=== PATIENT | female | born 1985 ===

== ENCOUNTER 2025-02-13 13:45 | Inpatient (IN) | payer OTHER ==
[~2025-02-13] VITALS: Ht 160 cm; Wt 77.1 kg
[2025-02-19 10:13] VITALS: BP 111/74
[2025-02-19] MEDS ORDERED: OXYTOCIN 20 UNITS/500ML RL PIGGYBAG IV ONE (10:18)
[2025-02-19] MEDS ORDERED: OXYTOCIN 500 ML IV ONE (11:15)
[2025-02-19] MEDS ORDERED: RINGERS SOLUTION,LACTATED 1,000 ML IV SCH (11:15)
[2025-02-19 11:46] LABS: BASO % 0.2 % (0.1-1.2); EOS # 0.05 (0.04-0.54); EOS % 0.8 % (0.7-7.0); LYMPH # 1.25 (1.18-3.74); LYMPH % 19.0 % (19.3-53.1); MEAN PLATELET VOLUME 12.00 fl (9.4-12.4); MONO # 0.44 (0.24-0.82); MONO % 6.7 % (4.7-12.5); NEUT # 4.78 (1.56-6.13); NEUT % 72.5 % (34.0-71.1); RED CELL DISTRIBUTION WIDTH 13.0 % (11.6-14.4)
[2025-02-19 12:13] LABS: INR < 0.93
[2025-02-19 12:42] LABS: ALT/SGPT 15.0 U/L (12-78); AST/SGOT 14.0 U/L (15-37); BILIRUBIN TOTAL 0.46 mg/dL (0.3-1.2); BUN CREA RATIO 20.0 (7.0-25.0); CREATININE SERUM 0.49 mg/dL (0.55-1.02); GFR 141.34; GLOBULINA 4.0 G/DL (2.4-3.5); GLUCOSE FASTING 79.0 mg/dL (65-100); OSMOLALITY SERUM 277.0 MOSM/KG (275-295)
[2025-02-19] MEDS ORDERED: ERYTHROMYCIN BASE OPHT 1GM EACH TUBE OP ONE ×2 (14:42→17:00)
[2025-02-19] MEDS ORDERED: OXYTOCIN 20 UNITS/1000ML RL PIGGYBAG IV ONE (14:42)
[2025-02-19] MEDS ORDERED: CHLORHEXIDINE GLUCONATE 120 ML BOTTLE TOP ONE (14:42)
[2025-02-19] MEDS ORDERED: LIDOCAINE HCL 1% 10ML VIAL ONE (14:43)
[2025-02-19 15:39] VITALS: BP 116/63
[2025-02-19 15:48] VITALS: BP 96/46
[2025-02-19 16:03] VITALS: BP 102/56
[2025-02-19] MEDS ORDERED: ACETAMINOPHEN WITH CODEINE 1 UDTAB TABLET PO PRN (17:00)
[2025-02-19] MEDS ORDERED: CHLORHEXIDINE GLUCONATE 120 ML BOTTLE TP SCH (17:00)
[2025-02-19] MEDS ORDERED: OXYTOCIN 1,000 ML IV SCH (17:00)
[2025-02-19 18:12] VITALS: BP 120/73
[2025-02-20 01:23] VITALS: BP 111/68
[2025-02-20 08:00] VITALS: BP 108/70
[2025-02-20 16:00] VITALS: BP 108/70
[2025-02-21] VITALS: BP 106/69
[2025-02-21 09:32] VITALS: BP 122/78
== END 2025-02-21 14:31 | disposition home or self-care (01) | DRG 807 ==
LOC: LDR 02-19 09:23 → OB/GYN 02-19 16:07
PROVIDERS: ADMIT Obstetrics & Gynecology; ATTEND Obstetrics & Gynecology
PROC: 10E0XZZ Delivery of Products of Conception, External Approach (ICD-10-PCS; principal; 2025-02-19)
PROC: 0HQ9XZZ Repair Perineum Skin, External Approach (ICD-10-PCS; 2025-02-19)
PROC: 4A1HXCZ Monitoring of Products of Conception, Cardiac Rate, External Approach (ICD-10-PCS; 2025-02-19)
DX: O70.0 First degree perineal laceration during delivery (principal); Z37.0 Single live birth; Z3A.39 39 weeks gestation of pregnancy

== ENCOUNTER 2025-02-14 10:06 | Outpatient (CLI) | payer OTHER | END 2025-02-14 11:17 | disposition home or self-care (01) | LOC: NST 10:06 | PROVIDERS: ATTEND Obstetrics & Gynecology | DX: Z34.83 Encounter for supervision of other normal pregnancy, third trimester (principal) ==